=== PATIENT | female | born 1945 | race Caucasian/White ===

== ENCOUNTER → 2017-07-17 | Day surgery (SDC) | payer MEDICARE ==
[~2017-07-17] VITALS: Ht 165.1 cm; Wt 76.4 kg
[~2017-07-17] MED LIST: CHLORHEXIDINE GLUCONATE 2 % 1 PACK (2 CLOTHS) TOPICAL PRN; DAILTAB38 PO; DONE5TAB7 PO; FISH500C PO; HYALURONIDASE/LIDOCAINE/BUPIVACAINE 5 ML SYR LEFT EYE ONE; LACTATED RINGER'S 1000 ML IV PRN; LEFL1TAB3 PO; LIDOCAINE HCL 1% PF 30 ML VIAL ONE; LISI2.5T3 PO; LOVA20TA PO; METOPROLOL TARTRATE 25 MG TAB PO PRN; OMEP20TA93 PO; POVIDONE IODINE 5% (ANTISEPSIS KIT) 4 APPLICATIONS EACH NARE PRN; PROPARACAINE HCL 0.5% OPHT SOLN 15 ML BTL LEFT EYE ONE; PROPOFOL 200 MG/20 ML AMP ONE; SERT-129 PO; SODIUM CHLORID 0.9% 500 ML INJ 500 ML ONE; TEMA30CA PO; TH GCAP PO; TOBRAMYCIN/DEXAMETHASONE OPTH OINT 3.5 GM TUBE ONE
[2017-07-17 07:30] VITALS: PULSE 66
[2017-07-17] MEDS: FLURBIPROFEN 0.03% OPHT SOLN 2.5 ML BTL LEFT EYE SCH ×4 (07:30→07:45)
[2017-07-17] MEDS: PHENYLEPHRINE HCL 10% OPTH SOLN 5 ML BTL LEFT EYE SCH ×4 (07:30→07:45)
[2017-07-17] MEDS: CYCLOPENTOLATE HCL 1% OPHT SOLN 2 ML BTL LEFT EYE SCH ×4 (07:30→07:45)
[2017-07-17] MEDS: TROPICAMIDE 1% OPHT SOLN 15 ML BTL LEFT EYE SCH ×4 (07:30→07:45)
[2017-07-17 07:58] VITALS: PULSE 76
[2017-07-17 09:00] VITALS: TEMP 97.6
[2017-07-17 09:25] VITALS: BP 138/87; PULSE 66; RESP 16; O2SAT 99
--- NOTE | 2017-07-19 20:28 | MP ---
cc: REBEL HERZOG M.D. DATE OF SURGERY: 07/17/2017. [facility] NUMBER: [id number]. PREOPERATIVE DIAGNOSIS Visually significant cataract left eye. POSTOPERATIVE DIAGNOSIS Visually significant cataract left eye. OPERATION Phacoemulsification with posterior chamber lens implantation, left eye. SURGEON Rebel Herzog MD ANESTHESIA Retrobulbar with MAC. COMPLICATIONS None DESCRIPTION OF THE PROCEDURE IN DETAIL: After informed consent was obtained, the patient was brought into the operative suite and placed on appropriate monitors by the Anesthesia Service. The patient had received a prior retrobulbar injection of local anesthetic by the Anesthesia Service in the holding area. The patient's operative eye was then prepped and draped in the usual sterile fashion. A wire lid speculum was placed. A paracentesis incision was made in the peripheral cornea with a 1 mm na keratome. The anterior chamber was filled with viscoelastic. The anterior chamber was then entered through a stepped, clear corneal incision using a sharp 3 mm na keratome. A circular tear capsulorrhexis was then made with a bent needle cystitome. Following hydrodissection of the lens nucleus with balanced saline, phacoemulsification of the nucleus was performed using a modified chopping technique. The remaining cortex was removed with irrigation/aspiration. The prior two procedures were both performed using the handpieces of the [employer] phaco unit. The capsular bag was then filled with viscoelastic. The intraocular lens was then injected into the capsular bag and positioned. The type of intraocular lens and its power can be found elsewhere in this chart. The remaining viscoelastic was then removed from the anterior chamber with the IA handpiece. The anterior chamber was reformed with balanced saline. The wound was then closed securely with stromal hydration. It was found to be watertight to an intraocular pressure of at least 30 mmHg by palpation. A small amount of balanced salt solution was then removed through the paracentesis site and the intraocular pressure at the end of the case was approximately 20 by palpation. All drapes were then removed. TobraDex ointment was then placed in the eye, which was closed beneath a semi-pressure patch dressing. The patient tolerated this procedure well and left the operating room awake and alert. The patient is to follow-up in my office in the morning. MD ANTIONE Price/ANGEL /9:52 AM /8:25 PM
== END | disposition home or self-care (01) ==
LOC: PHSDC 06:44
PROVIDERS: ATTEND Optometrist Occupational Vision
DX: H25.12 Age-related nuclear cataract, left eye (principal)
CPT/HCPCS: 00142; 66984; J7040; V2632